=== PATIENT | female | born 1960 | race Caucasian/White ===

== ENCOUNTER 2023-05-08 16:08 | Emergency (ER) | payer OTHER ==
[~2023-05-08] VITALS: Ht 180.3 cm; Wt 108.9 kg
[2023-05-08] MEDS ORDERED: NEURONTIN600 M1 PO (17:31)
[2023-05-08] MEDS ORDERED: LEVOTHYROXINE88 MC1 PO (17:32)
[2023-05-08] MEDS ORDERED: LUTEIN20 MG PO (17:33)
[2023-05-08] MEDS ORDERED: ZANAFLEX2 M1 PO (17:34)
[2023-05-08] MEDS ORDERED: FAMOTIDINE/PF 20 MG in 0.9 % SODIUM CHLORIDE 8 ML IV PUSH STA (18:37)
[2023-05-08] MEDS ORDERED: 0.9 % SODIUM CHLORIDE 1,000 ML IV SCH (18:45)
[2023-05-08] MEDS ORDERED: MEPERIDINE HCL/PF 25 MG/ML VIAL IM ONE (18:45)
[2023-05-08] MEDS ORDERED: ONDANSETRON HCL 2 MG/ML VIAL IV ONE (18:45)
[2023-05-08 19:29] LABS: HEMATOCRIT 40.6 % (36.0-45.00); HEMOGLOBIN 13.6 g/dL (12.0-15.00); MEAN CELL VOLUME 86.3 fL (80.00-100.00); MEAN CORPUSCULAR HEMOGLOBIN 28.8 pg (27.00-32.0); MEAN CORPUSCULAR HGB CONC 33.4 g/dl (32.0-36.0); PLATELET COUNT 229 K/uL (150-450); RED BLOOD COUNT 4.71 M/uL (4.00-6.00)
[2023-05-08 19:53] LABS: PARTIAL THROMBOPLASTIN TIME 30.1 SECONDS (22.0-34.0); PROTHROMBIN TIME 10.5 SECONDS (9.0-11.5)
[2023-05-08 19:59] LABS: ALBUMIN 4.2 gm/dL (3.4-5.0); BILIRUBIN TOTAL 0.71 mg/dL (0.3-1.2); BILIRUBIN,CONJUGATED 0.18 mg/dL (0.0-0.2); BILIRUBIN,UNCONJUGATED 0.53 mg/dL (0.0-0.6); CREATININE SERUM 0.96 mg/dL (0.55-1.02); GFR 58.89; GLOBULINA 3.7 G/DL (2.4-3.5); POTASSIUM 3.51 mEq/L (3.5-5.1); TOTAL PROTEIN 7.9 gm/dL (6.4-8.2)
[2023-05-08 20:14] LABS: URINE APPEARANCE Clear; URINE BILIRRUBIN Negative (NEGATIVE); URINE BLOOD Negative; URINE COLOR Dark Yellow; URINE GLUCOSE Negative (NEGATIVE); URINE LEUKOCYTE Negative; URINE NITRATE Negative; URINE PROTEIN Negative (NEGATIVE); URINE UROBILINOGEN 0.2 E.U./dl
[2023-05-08 20:18] LABS: URINE BACTERIA 159.9 uL (0.0-1933); URINE EPITHELIAL CELLS 3.2 uL (0.0-38.8); URINE RBC 5.8 uL (0.0-20.8); URINE WBC 10.3 uL (0.0-23.2)
[2023-05-08] MEDS ORDERED: OMEPRAZOLE40 MG PO (21:13)
[2023-05-08] MEDS ORDERED: LEVSIN/SL0.125 MG SL (21:13)
[2023-05-08] MEDS ORDERED: CIPRO500 MG PO (21:13)
[2023-05-08] MEDS ORDERED: CIPROFLOXACIN HCL 500 MG TABLET PO ONE (21:15)
== END 2023-05-08 21:49 | disposition home or self-care (01) ==
LOC: ER 16:08
PROVIDERS: General Practice
DX: R10.32 Left lower quadrant pain (principal); K52.9 Noninfective gastroenteritis and colitis, unspecified; K57.30 Diverticulosis of large intestine without perforation or abscess without bleeding; E03.9 Hypothyroidism, unspecified; Z88.6 Allergy status to analgesic agent; Z88.4 Allergy status to anesthetic agent; Z88.8 Allergy status to other drugs, medicaments and biological substances
CPT/HCPCS: 36415; 74176; 96365; 96366; 96372; 99284; J2405; J3490